=== PATIENT | female | born 2005 | race Caucasian/White ===

== ENCOUNTER 2023-09-06 18:21 | Emergency (ER) | payer OTHER, SELFPAY ==
[2023-09-06 18:40] VITALS: BP 129/89; PULSE 90; RESP 18; TEMP 37.4; O2SAT 100
--- NOTE | 2023-09-06 18:44 | ED.URI ---
HPI - URI/Sore Throat General Chief Complaint: Upper Respiratory Infection Stated Complaint: headache,cough,nausea Time Seen by Provider: 09/06/23 18:44 Source: patient Mode of arrival: ambulatory Limitations: no limitations History of Present Illness HPI Narrative: 18-year-old female presents with complaint of congestion, headaches, sore throat, fatigue, chest congestion and cough for the past 2 days. Afebrile. Reports that she coughed up darker sputum today and is concerned for pneumonia. No chest pain or shortness of breath. Patient took [id number] cold and flu medications this morning. All systems reviewed and negative except as noted above. Related Data Home Medications Medication Instructions Recorded Confirmed fluoxetine 40 mg capsule (Prozac) 60 mg PO DAILY 09/06/23 09/06/23 Allergies Allergy/AdvReac Type Severity Reaction Status Date / Time No Known Allergies Allergy Mild Verified 02/18/13 11:21 Review of Systems Review of Systems: CONSTITUTIONAL: Denies fever, chills, or sweats. reports fatigue. EYES: Denies visual changes, redness, or discharge. ENT: Reports rhinorrhea, congestion, sore throat. Denies otalgia. CARDIOVASCULAR: Denies chest pain, palpitations, or edema. RESPIRATORY: report cough. Denies dyspnea. GASTROINTESTINAL: Denies abdominal pain, nausea, vomiting, or diarrhea. GENITOURINARY: Denies dysuria or hematuria. SKIN: Denies rash or itching. MUSCULOSKELETAL: Denies back pain, joint pain, or myalgia. NEUROLOGIC: Denies headache, numbness, or weakness. PSYCHIATRIC: Denies anxiety or depression. All other systems reviewed are negative, except as documented in HPI. PMFSH Comments At time of signature, agree with nursing past medical, surgical, social and family history. There is no relevant family history pertinent to the presenting complaint. Exam Narrative: GENERAL: This is a well-nourished, well-developed patient, in no apparent distress. HEAD: normocephalic, atraumatic. EYES: PERRL. Sclera clear/white. Vision is grossly intact. EARS: External ears normal, auditory canals clear and without drainage, TMs normal without perforation. Hearing grossly intact. NOSE: External nose normal with Clear nasal drainage. THROAT: Mucous membranes moist, posterior pharynx clear. NECK: Neck supple, non-tender without lymphadenopathy, masses or thyromegaly. CARDIOVASCULAR: Regular rate and rhythm without murmurs, gallops, or rubs. RESPIRATORY: Clear to auscultation. Breath sounds equal bilaterally. No wheezes, rales, or rhonchi. SKIN: warm, Dry, intact with no suspicious lesions or rash, good texture and turgor. NEURO: awake, alert, and oriented to person, place and time. There were no obvious focal neurologic abnormalities. EXTREMITIES: No joint tenderness, effusion, or edema noted. Course Course Level of Care: Express Care Visit Vital Signs Vital signs: Vital Signs Temperature 37.4 C 09/06/23 18:40 Pulse Rate 90 09/06/23 18:40 Respiratory Rate 18 09/06/23 18:40 Blood Pressure 129/89 09/06/23 18:40 Pulse Oximetry 100 09/06/23 18:40 Temperature 37.4 C 09/06/23 18:40 Pulse Rate 90 09/06/23 18:40 Respiratory Rate 18 09/06/23 18:40 Blood Pressure 129/89 09/06/23 18:40 Pulse Oximetry 100 09/06/23 18:40 Reviewed MDM - URI/Sore Throat MDM Narrative Medical decision making narrative: Patient is aware of diagnosis, understands and agrees to treatment plan. Anticipatory guidance given. Patient agrees to follow-up as directed and is aware of reasons to seek care at the emergency department. Portions of this record may have been created with voice recognition software Differential Diagnosis Differential diagnosis: Likely upper respiratory infection and viral infection Lab Data Labs: Lab Results 09/06/23 Range/Units 18:45 POC SARS CoV-2 Ag Negative (Negative) Influenza A Screen Negative
[2023-09-06] MEDS: IBUPROFEN 600 MG TABLET PO (19:00)
== END 2023-09-06 19:15 | disposition home or self-care (01) ==
PROVIDERS: Emergency Provider Nurse Practitioner Family; PCP Pediatrics
DX: J06.9 Acute upper respiratory infection, unspecified (principal); Z20.822 Contact with and (suspected) exposure to COVID-19; F41.9 Anxiety disorder, unspecified; F32.A Depression, unspecified
CPT/HCPCS: 87426; 87804; 99213; A9270; C9803; G0463